=== PATIENT | female | born 1985 | race Two or more races ===

== ENCOUNTER → 2017-08-20 17:29 | Outpatient (CLI) | payer OTHER | END | disposition home or self-care (01) | LOC: RAD 17:29 | DX: M25.561 Pain in right knee (principal) ==

== ENCOUNTER → 2017-08-20 | Outpatient (CLI) | payer OTHER ==
[~2017-08-20] VITALS: Ht 152.4 cm; Wt 79.4 kg
[~2017-08-20] MED LIST: BENADRYL50 MG PO; SMZ-TMP DS 800-1 TAB PO; URETRON DS1 TAB PO; ZYRTEC10 M3 PO
== END | disposition home or self-care (01) ==
LOC: PPHC 16:21
DX: M25.561 Pain in right knee (principal)

== ENCOUNTER 2017-09-23 14:06 | Outpatient (CLI) | payer OTHER | END 2017-09-23 14:12 | disposition home or self-care (01) | LOC: LAB 14:06 | DX: R50.9 Fever, unspecified (principal) ==

== ENCOUNTER → 2017-09-23 | Outpatient (CLI) | payer OTHER | END | disposition home or self-care (01) | LOC: PPHC 12:47 | DX: B34.9 Viral infection, unspecified (principal) ==

== ENCOUNTER 2017-11-24 09:07 | Outpatient (CLI) | payer OTHER | END 2017-11-24 15:06 | disposition home or self-care (01) | LOC: MRI 09:07 | DX: M25.561 Pain in right knee (principal); M17.11 Unilateral primary osteoarthritis, right knee; M23.91 Unspecified internal derangement of right knee | CPT/HCPCS: 73721 ==

== ENCOUNTER 2018-02-02 14:53 | Outpatient (CLI) | payer OTHER | END 2018-02-02 14:54 | disposition home or self-care (01) | LOC: RAD 14:53 | DX: M17.11 Unilateral primary osteoarthritis, right knee (principal) ==

== ENCOUNTER 2018-03-01 07:58 | Outpatient (CLI) | payer OTHER | END 2018-03-01 08:12 | disposition home or self-care (01) | LOC: RAD 07:58 | DX: D64.89 Other specified anemias (principal); D68.8 Other specified coagulation defects; N39.0 Urinary tract infection, site not specified; E88.89 Other specified metabolic disorders; A49.02 Methicillin resistant Staphylococcus aureus infection, unspecified site; Z76.89 Persons encountering health services in other specified circumstances; I49.8 Other specified cardiac arrhythmias ==

== ENCOUNTER 2018-03-05 11:00 | Outpatient (CLI) | payer OTHER | END 2018-03-05 11:08 | disposition home or self-care (01) | LOC: LAB 11:00 | DX: N39.0 Urinary tract infection, site not specified (principal) ==

== ENCOUNTER 2018-03-24 12:07 | Outpatient (CLI) | payer OTHER | END 2018-03-24 15:19 | disposition home or self-care (01) | LOC: RAD 12:07 | DX: M23.611 Other spontaneous disruption of anterior cruciate ligament of right knee (principal) ==

== ENCOUNTER 2018-04-19 10:43 | Outpatient (CLI) | payer OTHER | END 2018-04-19 10:48 | disposition home or self-care (01) | LOC: RAD 10:43 | DX: M23.611 Other spontaneous disruption of anterior cruciate ligament of right knee (principal) ==

== ENCOUNTER 2018-06-08 09:54 | Outpatient (CLI) | payer OTHER | END 2018-06-08 09:59 | disposition home or self-care (01) | LOC: RAD 09:54 | DX: M23.611 Other spontaneous disruption of anterior cruciate ligament of right knee (principal) ==

== ENCOUNTER 2018-06-11 11:35 | Outpatient (CLI) | payer OTHER | END 2018-06-11 11:42 | disposition home or self-care (01) | LOC: LAB 11:35 | DX: E55.9 Vitamin D deficiency, unspecified (principal); M85.9 Disorder of bone density and structure, unspecified ==

== ENCOUNTER 2018-08-30 10:29 | Outpatient (CLI) | payer OTHER | END 2018-08-30 10:45 | disposition home or self-care (01) | LOC: RAD 10:29 | DX: M23.611 Other spontaneous disruption of anterior cruciate ligament of right knee (principal) ==

== ENCOUNTER → 2019-02-22 14:37 | Outpatient (CLI) | payer OTHER | END | disposition home or self-care (01) | LOC: LAB 14:37 | DX: E55.9 Vitamin D deficiency, unspecified (principal); M85.88 Other specified disorders of bone density and structure, other site; Z11.1 Encounter for screening for respiratory tuberculosis; Z02.79 Encounter for issue of other medical certificate ==

== ENCOUNTER 2019-02-28 10:21 | Outpatient (CLI) | payer OTHER | END 2019-02-28 10:56 | disposition home or self-care (01) | LOC: RAD 10:21 | DX: M81.0 Age-related osteoporosis without current pathological fracture (principal); E55.9 Vitamin D deficiency, unspecified ==

== ENCOUNTER 2019-08-12 06:39 | Emergency (ER) | payer OTHER ==
[~2019-08-12] VITALS: Ht 165.1 cm; Wt 72.6 kg
== END 2019-08-12 15:42 | disposition home or self-care (01) ==
LOC: ER 06:39
DX: K29.70 Gastritis, unspecified, without bleeding (principal)

== ENCOUNTER 2020-03-27 08:00 | Outpatient (CLI) | payer OTHER | END 2020-03-27 15:00 | disposition home or self-care (01) | LOC: PPH VACUNA 08:00 | DX: Z23 Encounter for immunization (principal) ==

== ENCOUNTER 2020-12-18 13:03 | Emergency (ER) | payer OTHER ==
[~2020-12-18] VITALS: Ht 165.1 cm; Wt 62.1 kg
[2020-12-18] MEDS ORDERED: BUTALB-ASPIRIN1 EACH PO (16:53)
== END 2020-12-18 17:19 | disposition home or self-care (01) ==
LOC: ER 13:03
DX: G44.201 Tension-type headache, unspecified, intractable (principal)

== ENCOUNTER 2021-04-09 10:20 | Outpatient (CLI) | payer OTHER ==
[~2021-04-09 10:20] MED LIST changes: +BUTALB-ASPIRIN1 EACH PO
== END 2021-04-09 11:20 | disposition home or self-care (01) ==
LOC: PPH VACUNA 10:20
PROVIDERS: ATTEND Emergency Medicine Pediatric Emergency Medicine
DX: Z23 Encounter for immunization (principal)

== ENCOUNTER 2021-05-26 13:00 | Emergency (ER) | payer OTHER ==
[~2021-05-26] VITALS: Ht 165.1 cm; Wt 63.5 kg
== END 2021-05-26 15:39 | disposition home or self-care (01) ==
LOC: ER 13:00
DX: H10.32 Unspecified acute conjunctivitis, left eye (principal)

== ENCOUNTER 2022-03-12 14:04 | Outpatient (CLI) | payer OTHER | END 2022-03-12 14:09 | disposition home or self-care (01) | LOC: PPH VACUNA 14:04 | PROVIDERS: ATTEND Emergency Medicine Pediatric Emergency Medicine | DX: Z23 Encounter for immunization (principal) ==

== ENCOUNTER 2022-06-11 11:12 | Outpatient (CLI) | payer OTHER | END 2022-06-11 11:23 | disposition home or self-care (01) | LOC: LAB 11:12 | PROVIDERS: ATTEND Preventive Medicine Occupational Medicine | DX: U07.1 COVID-19 (principal) ==

== ENCOUNTER 2023-04-03 09:55 | Outpatient (CLI) | payer OTHER | END 2023-04-03 10:05 | disposition home or self-care (01) | LOC: PPH VACUNA 09:55 | PROVIDERS: ATTEND Emergency Medicine Pediatric Emergency Medicine | DX: Z23 Encounter for immunization (principal) | CPT/HCPCS: 90686; G0008 ==

== ENCOUNTER 2023-05-06 08:13 | Emergency (ER) | payer OTHER ==
[~2023-05-06] VITALS: Ht 165.1 cm; Wt 59.4 kg
[2023-05-06 09:44] LABS: HEMATOCRIT 39.9 % (36.0-45.00); HEMOGLOBIN 13.3 g/dL (12.0-15.00); MEAN CELL VOLUME 85.7 fL (80.00-100.00); MEAN CORPUSCULAR HEMOGLOBIN 28.6 pg (27.00-32.0); MEAN CORPUSCULAR HGB CONC 33.3 g/dl (32.0-36.0); PLATELET COUNT 246 K/uL (150-450); RED BLOOD COUNT 4.66 M/uL (4.00-6.00); RED CELL DISTRIBUTION WIDTH 14.6 % (11.5-14.5)
[2023-05-06 10:19] LABS: URINE APPEARANCE Clear; URINE BILIRRUBIN Negative (NEGATIVE); URINE BLOOD Negative; URINE COLOR Yellow; URINE GLUCOSE Negative (NEGATIVE); URINE LEUKOCYTE Negative; URINE NITRATE Negative; URINE PROTEIN Negative (NEGATIVE); URINE UROBILINOGEN 0.2 E.U./dl
[2023-05-06 10:21] LABS: URINE BACTERIA 256.8 uL (0.0-1933); URINE EPITHELIAL CELLS 3.7 uL (0.0-38.8); URINE WBC 6.3 uL (0.0-23.2)
[2023-05-06 10:25] LABS: URINE RBC 0.5 uL (0.0-20.8)
[2023-05-06 10:28] LABS: CALCIUM 8.9 mg/dL (8.5-10.1); CREATININE SERUM 0.71 mg/dL (0.55-1.02); GFR 92.63; POTASSIUM 3.42 mEq/L (3.5-5.1)
== END 2023-05-06 13:27 | disposition home or self-care (01) ==
LOC: ER 08:13
PROVIDERS: General Practice
DX: B34.9 Viral infection, unspecified (principal); R10.9 Unspecified abdominal pain; R11.10 Vomiting, unspecified

== ENCOUNTER → 2025-01-02 | Outpatient (CLI) | payer OTHER ==
[2025-01-04 09:11] LABS: HEPATITIS A ANTIBODY IGG Negative (Negative); HEPATITIS B SURFACE ANTIBODY Reactive (.); HEPATITIS C VIRUS ANTIBODY Non Reactive (Non Reactive)
== END | disposition home or self-care (01) ==
LOC: LAB 10:40
DX: A64 Unspecified sexually transmitted disease (principal); B19.9 Unspecified viral hepatitis without hepatic coma

== ENCOUNTER 2025-04-11 08:08 | Outpatient (CLI) | payer OTHER ==
[2025-04-11 08:38] LABS: BASO % 0.7 % (0.1-1.2); EOS # 0.04 (0.04-0.54); EOS % 0.5 % (0.7-7.0); LYMPH # 1.82 (1.18-3.74); LYMPH % 23.8 % (19.3-53.1); MEAN PLATELET VOLUME 9.90 fl (9.4-12.4); MONO # 0.47 (0.24-0.82); MONO % 6.1 % (4.7-12.5); NEUT # 5.24 (1.56-6.13); NEUT % 68.5 % (34.0-71.1); RED CELL DISTRIBUTION WIDTH 14.5 % (11.6-14.4)
[2025-04-11 09:14] LABS: ALT/SGPT 27.0 U/L (12-78); AST/SGOT 19.0 U/L (15-37); BILIRUBIN TOTAL 1.03 mg/dL (0.3-1.2); BUN CREA RATIO 23.0 (7.0-25.0); CHOL HDL RATIO 1.8 (0-5.0); CREATININE SERUM 0.82 mg/dL (0.55-1.02); GFR 77.61; GLOBULINA 3.4 G/DL (2.4-3.5); GLUCOSE FASTING 83.0 mg/dL (65-100); HDL 67.0 mg/dl (40-60); LDL 48.0 mg/dl (0-130); OSMOLALITY SERUM 286.0 MOSM/KG (275-295); VLDL 8.0 (0-39)
[2025-04-11 09:32] LABS: TSH 2.41 uIU/mL (0.358-3.74)
== END 2025-04-11 08:13 | disposition home or self-care (01) ==
LOC: LAB 08:08
PROVIDERS: ATTEND Internal Medicine Gastroenterology
DX: K30 Functional dyspepsia (principal); R10.10 Upper abdominal pain, unspecified

== ENCOUNTER 2025-04-14 07:09 | Outpatient (CLI) | payer OTHER | END 2025-04-14 07:13 | disposition home or self-care (01) | LOC: TOM 07:09 | PROVIDERS: ATTEND Internal Medicine Gastroenterology | DX: R10.10 Upper abdominal pain, unspecified (principal); R10.30 Lower abdominal pain, unspecified ==

== ENCOUNTER 2025-04-14 10:47 | Outpatient (CLI) | payer OTHER ==
[2025-04-14 12:19] LABS: BASO % 1.0 % (0.1-1.2); EOS # 0.05 (0.04-0.54); EOS % 0.8 % (0.7-7.0); LYMPH # 2.03 (1.18-3.74); LYMPH % 33.6 % (19.3-53.1); MEAN PLATELET VOLUME 9.90 fl (9.4-12.4); MONO # 0.35 (0.24-0.82); MONO % 5.8 % (4.7-12.5); NEUT # 3.54 (1.56-6.13); NEUT % 58.6 % (34.0-71.1); RED CELL DISTRIBUTION WIDTH 14.1 % (11.6-14.4)
[2025-04-14 12:36] LABS: URINE APPEARANCE Clear; URINE BILIRRUBIN Negative (NEGATIVE); URINE BLOOD Negative; URINE COLOR Yellow; URINE GLUCOSE Negative (NEGATIVE); URINE KETONE Trace (NEGATIVE); URINE LEUKOCYTE Negative; URINE NITRATE Negative; URINE PROTEIN Negative (NEGATIVE); URINE UROBILINOGEN 0.2 E.U./dl
[2025-04-14 12:37] LABS: URINE RBC 2.1 uL (0.0-20.8)
[2025-04-14 12:41] LABS: URINE BACTERIA 2.3 uL (0.0-1933); URINE CAST 0.00 uL (0.0-1.40); URINE EPITHELIAL CELLS 0.4 uL (0.0-38.8); URINE WBC 0.3 uL (0.0-23.2)
[2025-04-14 13:02] LABS: ALT/SGPT 27.0 U/L (12-78); AST/SGOT 16.0 U/L (15-37); BILIRUBIN TOTAL 2.34 mg/dL (0.3-1.2); BUN CREA RATIO 15.0 (7.0-25.0); CHOL HDL RATIO 1.9 (0-5.0); CREATININE SERUM 0.59 mg/dL (0.55-1.02); GFR 113.47; GLOBULINA 3.6 G/DL (2.4-3.5); GLUCOSE FASTING 77.0 mg/dL (65-100); HDL 66.0 mg/dl (40-60); LDL 48.0 mg/dl (0-130); OSMOLALITY SERUM 277.0 MOSM/KG (275-295); TSH 2.43 uIU/mL (0.358-3.74); VLDL 8.0 (0-39)
== END 2025-04-14 10:54 | disposition home or self-care (01) ==
LOC: LAB 10:47
PROVIDERS: ATTEND Obstetrics & Gynecology Gynecology
DX: N76.0 Acute vaginitis (principal); E03.8 Other specified hypothyroidism; D63.8 Anemia in other chronic diseases classified elsewhere; N30.90 Cystitis, unspecified without hematuria; E78.00 Pure hypercholesterolemia, unspecified; R73.9 Hyperglycemia, unspecified; K92.1 Melena; Z12.11 Encounter for screening for malignant neoplasm of colon; E55.9 Vitamin D deficiency, unspecified

== ENCOUNTER 2025-04-18 07:00 | Day surgery (SDC) | payer OTHER ==
[2025-04-18] MEDS ORDERED: DIPHENHYDRAMINE HCL 50 MG/ML VIAL 1ML IV STA (10:11)
[2025-04-18] MEDS ORDERED: MIDAZOLAM HCL 2 MG/2 ML VIAL IV STA (10:11)
== END 2025-04-18 11:35 | disposition home or self-care (01) ==
LOC: AMB-ENDOS 07:00
PROVIDERS: ATTEND Internal Medicine Gastroenterology
DX: K29.60 Other gastritis without bleeding (principal); R10.13 Epigastric pain

== ENCOUNTER 2025-05-11 11:31 | Outpatient (CLI) | payer OTHER | END 2025-05-11 11:38 | disposition home or self-care (01) | LOC: MAMO-SONO 11:31 | PROVIDERS: ATTEND Surgery | DX: N60.11 Diffuse cystic mastopathy of right breast (principal); N60.12 Diffuse cystic mastopathy of left breast ==

== ENCOUNTER 2025-05-28 21:21 | Inpatient (IN) | payer OTHER ==
[~2025-05-28] VITALS: Ht 165.1 cm; Wt 61.7 kg
[2025-05-28] MEDS ORDERED: FAMOTIDINE/PF 20 MG/2 ML VIAL IV PUSH ONE (23:30)
[2025-05-28] MEDS ORDERED: ONDANSETRON HCL 2 MG/ML VIAL IV ONE (23:30)
[2025-05-28] MEDS ORDERED: 0.9 % SODIUM CHLORIDE 1,000 ML IV SCH (23:30)
[2025-05-28] MEDS ORDERED: ACETAMINOPHEN 500 MG GEL..CAP PO PRN (23:30)
[2025-05-28] MEDS ORDERED: KETOROLAC TROMETHAMINE 30 MG VIAL IU ONE (23:30)
[2025-05-28] MEDS ORDERED: ONDANSETRON HCL 2 MG/ML VIAL ONE (23:56)
[2025-05-28] MEDS ORDERED: FAMOTIDINE/PF 20 MG/2 ML VIAL ONE (23:56)
[2025-05-28] MEDS ORDERED: KETOROLAC TROMETHAMINE 30 MG VIAL ONE (23:56)
[2025-05-29 00:26] LABS: BASO % 0.2 % (0.1-1.2); EOS # 0.00 (0.04-0.54); EOS % 0.0 % (0.7-7.0); LYMPH # 0.59 (1.18-3.74); LYMPH % 3.4 % (19.3-53.1); MEAN PLATELET VOLUME 9.60 fl (9.4-12.4); MONO # 0.56 (0.24-0.82); MONO % 3.2 % (4.7-12.5); NEUT # 16.06 (1.56-6.13); NEUT % 92.9 % (34.0-71.1); RED CELL DISTRIBUTION WIDTH 14.6 % (11.6-14.4)
[2025-05-29 00:55] LABS: INR 1.06
[2025-05-29] MEDS ORDERED: PIPERACILLIN/TAZOBACTAM SODIUM 3.375 GM in DEXTROSE 5 % IN WATER 100 ML IV ONE (01:00)
[2025-05-29] MEDS ORDERED: PIPERACILLIN/TAZOBACTAM SODIUM 3.375 GM VIAL IV ONE ×3 (01:30→18:57)
[2025-05-29 02:29] LABS: ALT/SGPT 18 U/L (12-78); AST/SGOT 14 U/L (15-37); BILIRUBIN TOTAL 2.40 mg/dL (0.3-1.2); BUN CREA RATIO 12 (7.0-25.0); CREATININE SERUM 0.74 mg/dL (0.55-1.02); GFR 87.37; GLOBULINA 3.2 G/DL (2.4-3.5); GLUCOSE FASTING 142 mg/dL (65-100); OSMOLALITY SERUM 279 MOSM/KG (275-295)
[2025-05-29 02:54] LABS: HCG QUANTITATIVE < 1 mUI/mL (1-3)
[2025-05-29 03:06] LABS: URINE APPEARANCE Clear; URINE BILIRRUBIN Negative (NEGATIVE); URINE BLOOD Negative; URINE COLOR Yellow; URINE GLUCOSE Negative (NEGATIVE); URINE LEUKOCYTE Negative; URINE NITRATE Negative; URINE PROTEIN Negative (NEGATIVE); URINE UROBILINOGEN 1.0 E.U./dl
[2025-05-29 03:09] LABS: URINE BACTERIA 129.6 uL (0.0-1933); URINE EPITHELIAL CELLS 6.3 uL (0.0-38.8); URINE RBC 3.8 uL (0.0-20.8); URINE WBC 15.6 uL (0.0-23.2)
[2025-05-29 03:12] LABS: URINE CAST 0.14 uL (0.0-1.40); URINE KETONE 40 (NEGATIVE)
[2025-05-29] MEDS ORDERED: 0.9 % SODIUM CHLORIDE 1,000 ML IV ONE (04:45)
[2025-05-29 07:17] LABS: BASO % 0.2 % (0.1-1.2); EOS # 0.00 (0.04-0.54); EOS % 0.0 % (0.7-7.0); LYMPH # 1.29 (1.18-3.74); LYMPH % 6.2 % (19.3-53.1); MEAN PLATELET VOLUME 9.80 fl (9.4-12.4); MONO # 0.82 (0.24-0.82); MONO % 3.9 % (4.7-12.5); NEUT # 18.59 (1.56-6.13); NEUT % 89.0 % (34.0-71.1); RED CELL DISTRIBUTION WIDTH 14.5 % (11.6-14.4)
[2025-05-29] MEDS ORDERED: PIPERACILLIN/TAZOBACTAM SODIUM 3.375 GM in DEXTROSE 5 % IN WATER 100 ML IV SCH (08:48)
[2025-05-29] MEDS ORDERED: FAMOtidine 10 MG/ML (4ML VIAL) IV SCH (09:00)
[2025-05-29] MEDS ORDERED: FAMOTIDINE/PF 20 MG/2 ML VIAL ONE (09:05)
[2025-05-29] MEDS ORDERED: ACETAMINOPHEN 325 MG TABLET PO ONE (09:18)
[2025-05-29] MEDS ORDERED: BUPIVACAINE HCL/MPF 0.5% 30ML VIAL ONE (15:04)
[2025-05-29] MEDS ORDERED: POVIDONE-IODINE 118 ML BOTT TOP ONE (15:04)
[2025-05-29] MEDS ORDERED: CEFAZOLIN SODIUM 1,000 MG VIAL ONE (16:48)
[2025-05-29] MEDS ORDERED: CEFAZOLIN SODIUM 1,000 MG VIAL IV ONE (17:15)
[2025-05-29] MEDS ORDERED: SUGAMMADEX SODIUM 200 MG/2 ML VIAL IV ONE (17:31)
[2025-05-30 01:11] VITALS: BP 99/63; O2SAT 97
[2025-05-30 07:43] VITALS: BP 101/64; O2SAT 97
[2025-05-30] MEDS ORDERED: FAMOTIDINE/PF 20 MG/2 ML VIAL IV SCH (09:00)
[2025-05-30 11:23] LABS: BASO % 0.3 % (0.1-1.2); EOS # 0.05 (0.04-0.54); EOS % 0.4 % (0.7-7.0); LYMPH # 1.32 (1.18-3.74); LYMPH % 11.1 % (19.3-53.1); MEAN PLATELET VOLUME 10.20 fl (9.4-12.4); MONO # 0.56 (0.24-0.82); MONO % 4.7 % (4.7-12.5); NEUT # 9.82 (1.56-6.13); NEUT % 83.0 % (34.0-71.1); RED CELL DISTRIBUTION WIDTH 15.1 % (11.6-14.4)
[2025-05-30 12:13] LABS: ALT/SGPT 18.0 U/L (12-78); AST/SGOT 15.0 U/L (15-37); BILIRUBIN TOTAL 2.51 mg/dL (0.3-1.2); BUN CREA RATIO 10.0 (7.0-25.0); CREATININE SERUM 0.59 mg/dL (0.55-1.02); GFR 113.47; GLOBULINA 3.2 G/DL (2.4-3.5); GLUCOSE FASTING 74.0 mg/dL (65-100); OSMOLALITY SERUM 281.0 MOSM/KG (275-295)
[2025-05-30 16:00] VITALS: BP 109/61; O2SAT 99
[2025-05-31 00:30] VITALS: BP 104/61; O2SAT 100
[2025-05-31 09:27] VITALS: BP 118/74; O2SAT 99
[2025-05-31] MEDS ORDERED: SODIUM CHLORIDE 0.45 % 1,000 ML IV SCH (09:45)
[2025-05-31] MEDS ORDERED: PANTOPRAZOLE SODIUM 40 MG TABLET.DR PO NR (11:00)
[2025-05-31 11:31] LABS: BASO % 0.4 % (0.1-1.2); EOS # 0.05 (0.04-0.54); EOS % 0.6 % (0.7-7.0); LYMPH # 0.84 (1.18-3.74); LYMPH % 10.8 % (19.3-53.1); MEAN PLATELET VOLUME 10.00 fl (9.4-12.4); MONO # 0.41 (0.24-0.82); MONO % 5.3 % (4.7-12.5); NEUT # 6.42 (1.56-6.13); NEUT % 82.6 % (34.0-71.1); RED CELL DISTRIBUTION WIDTH 14.6 % (11.6-14.4)
[2025-05-31 12:09] LABS: INR 1.05
[2025-05-31 12:16] LABS: ALT/SGPT 14.0 U/L (12-78); AST/SGOT 13.0 U/L (15-37); BILIRUBIN TOTAL 1.9 mg/dL (0.3-1.2); BUN CREA RATIO 7.0 (7.0-25.0); CREATININE SERUM 0.75 mg/dL (0.55-1.02); GFR 86.03; GLOBULINA 3.3 G/DL (2.4-3.5); GLUCOSE FASTING 139.0 mg/dL (65-100); OSMOLALITY SERUM 288.0 MOSM/KG (275-295)
[2025-05-31 15:30] VITALS: BP 106/65; O2SAT 99
[2025-05-31] MEDS ORDERED: PANTOPRAZOLE SODIUM 40 MG TABLET.DR PO SCH (17:00)
[2025-06-01 01:55] VITALS: BP 96/62; O2SAT 97
[2025-06-01] MEDS ORDERED: AMOX1TAB5 PO (13:05)
[2025-06-01] MEDS ORDERED: PROTONIX40 MG PO (13:05)
== END 2025-06-01 14:46 | disposition home or self-care (01) | DRG 399 ==
LOC: ER 21:22 → SURG 05-29 12:38
PROVIDERS: General Practice; Internal Medicine; ADMIT Student in an Organized Health Care Education/Training Program; ATTEND Student in an Organized Health Care Education/Training Program
PROC: BW21YZZ Computerized Tomography (CT Scan) of Abdomen and Pelvis using Other Contrast (ICD-10-PCS; 2025-05-28)
PROC: 0DTJ4ZZ Resection of Appendix, Percutaneous Endoscopic Approach (ICD-10-PCS; principal; 2025-05-29 18:15)
DX: K35.32 Acute appendicitis with perforation, localized peritonitis, and gangrene, without abscess (principal); K29.70 Gastritis, unspecified, without bleeding